=== PATIENT | female | born 1990 | race Caucasian/White ===

== ENCOUNTER 2017-05-08 23:45 | Emergency (ER) | payer OTHER ==
[2017-05-08 23:58] VITALS: BP 107/65; PULSE 75; RESP 18; TEMP 97
[2017-05-09] MEDS ORDERED: DIPH,PERTUS(ACELL)TETVAC-LF 0.5 ML VIAL IM ONE (00:02)
[2017-05-09] MEDS ORDERED: CEPHALEXIN 500 MG CAP PO STA (00:02)
[2017-05-09] MEDS ORDERED: BUPIVACAINE (PF) 0.5% 30 ML VIAL SQ STA (00:03)
--- NOTE | 2017-05-09 00:19 | ED ---
Wound/Laceration HPI - General Chief Complaint: Wound/Laceration Stated Complaint: Leg injury Time Seen by Provider: 05/08/17 23:58 Source: patient, family, RN/MD, RN notes reviewed Mode of arrival: ambulatory Limitations: no limitations - History of Present Illness Initial Comments: This is a pleasant 26-year-old female presents emergency department after sustaining a large splinter to the anterior aspect of her left lower leg. Patient was caring and air conditioner when she struck her leg on her bed sustaining a splinter from the wooden bed frame. Injury occurred about an hour prior to arrival. Tetanus status is unknown. Patient has no history of diabetes or immunosuppression. Patient is able to ambulate without difficulty. Patient denies any numbness or tingling. No distal or proximal symptoms. - Related Data Previous Rx's Medication Instructions Recorded Cephalexin [Keflex] 500 mg PO Q6HR #40 cap 05/09/17 Allergies Allergy/AdvReac Type Severity Reaction Status Date / Time latex Allergy Rash/Hives Verified 05/08/17 23:57 Review of Systems ROS Statement: Those systems with pertinent positive or pertinent negative responses have been documented in the HPI. ROS Other: All systems not noted in ROS Statement are negative. Past Medical History Past Medical History: No Reported History History of Any Multi-Drug Resistant Organisms: None Reported Past Surgical History: No Surgical Hx Reported Past Psychological History: No Psychological Hx Reported Smoking Status: Never smoker Past Alcohol Use History: None Reported Past Drug Use History: None Reported General Exam - General Exam Comments Initial Comments: Well-developed, well-nourished 26-year-old female in mild distress Limitations: no limitations General appearance: alert, in no apparent distress Head exam: Present: atraumatic, normocephalic, normal inspection Eye exam: Present: normal appearance, EOMI Neck exam: Present: normal inspection Respiratory exam: Present: normal lung sounds bilaterally. Absent: respiratory distress, wheezes, rales, rhonchi, stridor Cardiovascular Exam: Present: regular rate, normal rhythm, normal heart sounds. Absent: systolic murmur, diastolic murmur, rubs, gallop, clicks Extremities exam: Present: full ROM, normal capillary refill, other (Motor strength is normal). Absent: normal inspection, pedal edema, joint swelling, calf tenderness Neurological exam: Present: alert, oriented X3, CN II-XII intact. Absent: motor sensory deficit, reflexes normal Psychiatric exam: Present: normal affect, normal mood Skin exam: Present: other (Patient has a large soft tissue foreign body which is relatively superficial to the anterior aspect of the left lower leg. This is a large wooden splinter. The slit there is embedded in the subcutaneous tissue, probably about 4 cm. There is no evidence of vascular compromise. Capillary refill less than 2 seconds. Pedal pulses are normal.). Absent: intact Course Vital Signs 05/08/17 23:55 Temperature 97 F L Pulse Rate 75 Respiratory 18 Rate Blood Pressure 107/65 O2 Sat by Pulse 97 Oximetry Procedures - Procedures Initial comment: Area is prepped and draped in sterile fashion. 1% lidocaine with EPINEPHRINE was used to provide local anesthesia. A 27-gauge needle was used. 3 mL of anesthetic was used. The large splinter was removed with traction along the line of entry. The entire splinter was removed. There was no evidence of remaining foreign body. Wound was irrigated copiously with normal saline. Sterile dressing applied. Patient tolerated well. Medical Decision Making - Medical Decision Making I did warn the patient and family of the possibility of retained foreign body, even the likelihood of retained wooden particles. We discussed signs and symptoms of infection. We discussed wound care. We discussed follow-up for wound check. Return parameters were discussed. Case was discussed and the patient was seen by the ER attending physician, Dr. Cali. Disposition Clinical Impression: Soft tissues foreign body, Splinter of lower extremity Disposition: HOME SELF-CARE Condition: Good Instructions: Soft Tissue Foreign Body (ED), Acute Wound Care (ED) Additional Instructions: Return to the ER at once if the symptoms worsen or problems or difficulties arise. Follow-up for wound check in 2 days as directed. Warm compresses for 10 -15 minutes at a time with warm soap and water 6 times daily as directed. Take the antibiotic as directed. Use [id number] Motrin and Tylenol for pain control. Referrals: Marleen Stein DO [Primary Care Provider] - 1-2 days Time of Disposition: 00:20
[2017-05-09] MEDS ORDERED: LIDOCAINE 1% INJ 10MG/ML (20 ML MDV) SQ ONE (00:25)
== END 2017-05-09 00:38 | disposition home or self-care (01) ==
LOC: EC 23:45
DX: S81.842A Puncture wound with foreign body, left lower leg, initial encounter (principal); Z23 Encounter for immunization; Z91.040 Latex allergy status; W20.8XXA Other cause of strike by thrown, projected or falling object, initial encounter; Y93.89 Activity, other specified
CPT/HCPCS: 90715; 99283; 10120; 90471; J2001

== ENCOUNTER 2018-12-09 10:24 | Emergency (ER) | payer OTHER ==
[2018-12-09 10:29] VITALS: BP 131/83; PULSE 84; RESP 18; TEMP 98.1
--- NOTE | 2018-12-09 10:36 | ED ---
ENT HPI - General Chief complaint: ENT Stated complaint: bleeding rt ear Time Seen by Provider: 12/09/18 10:34 Source: patient, RN notes reviewed Mode of arrival: ambulatory Limitations: no limitations - History of Present Illness Initial comments: 28-year-old female presents emergency Department chief complaint of bleeding from her right ear. Patient states that she was in the shower when this started. She has had some nasal congestion recently but denies any ear pain prior or currently. Patient states that she did use Q-tips just before she was in the shower and may have injured it. Patient states that it her ear feels full but has nearly normal hearing. - Related Data Previous Rx's Medication Instructions Recorded Cephalexin [Keflex] 500 mg PO Q6HR #40 cap 05/09/17 Amoxicillin 875 mg PO Q12HR #20 tablet 12/09/18 Allergies Allergy/AdvReac Type Severity Reaction Status Date / Time latex Allergy Rash/Hives Verified 12/09/18 10:29 Review of Systems ROS Statement: Those systems with pertinent positive or pertinent negative responses have been documented in the HPI. ROS Other: All systems not noted in ROS Statement are negative. Past Medical History Past Medical History: No Reported History History of Any Multi-Drug Resistant Organisms: None Reported Past Surgical History: No Surgical Hx Reported Past Psychological History: No Psychological Hx Reported Smoking Status: Never smoker Past Alcohol Use History: None Reported Past Drug Use History: None Reported General Exam Limitations: no limitations General appearance: alert, in no apparent distress Head exam: Present: atraumatic, normocephalic, normal inspection Eye exam: Present: normal appearance, PERRL, EOMI. Absent: scleral icterus, conjunctival injection, periorbital swelling ENT exam: Present: normal oropharynx, mucous membranes moist. Absent: TM's normal bilaterally, normal external ear exam (Dry blood noted in the right ear canal, possible small perforation noted) Neck exam: Present: normal inspection, full ROM. Absent: tenderness, meningismus, lymphadenopathy Respiratory exam: Present: normal lung sounds bilaterally. Absent: respiratory distress, wheezes, rales, rhonchi, stridor Cardiovascular Exam: Present: regular rate, normal rhythm, normal heart sounds. Absent: systolic murmur, diastolic murmur, rubs, gallop, clicks Course Vital Signs 12/09/18 10:27 Temperature 98.1 F Pulse Rate 84 Respiratory 18 Rate Blood Pressure 131/83 O2 Sat by Pulse 98 Oximetry Medical Decision Making - Medical Decision Making 28-year-old female presented from for bleeding from right ear. Patient most likely has traumatic injury of her eardrum. Patient was placed on antibiotics. Patient will follow-up with ENT. Return parameters were discussed. Disposition Clinical Impression: Bleeding from right ear, Traumatic perforation of tympanic membrane Disposition: HOME SELF-CARE Condition: Stable Instructions: Ruptured Eardrum (ED) Additional Instructions: Please return to the Emergency Department if symptoms worsen or any other concerns. Prescriptions: Amoxicillin 875 mg PO Q12HR #20 tablet Is patient prescribed a controlled substance at d/c from ED?: No Referrals: Marleen Stein DO [Primary Care Provider] - 1-2 days Hussein Maldonado DO [Doctor of Osteopathic Medicine] - 1-2 days Time of Disposition: 10:50
== END 2018-12-09 11:24 | disposition home or self-care (01) ==
LOC: EC 10:24
DX: S09.21XA Traumatic rupture of right ear drum, initial encounter (principal); H92.21 Otorrhagia, right ear; Z91.040 Latex allergy status; Y93.E1 Activity, personal bathing and showering
CPT/HCPCS: 99282

== ENCOUNTER 2019-06-24 13:46 | Emergency (ER) | payer OTHER ==
[2019-06-24 13:51] VITALS: RESP 18
[2019-06-24 15:18] LABS: Appearance,Urine Cloudy (Clear); Bacteria,Urine Occasional /hpf; Bilirubin,Urine Negative (Negative); Blood,Urine Negative (Negative); Color,Urine Yellow; Glucose,Urine (UA) Negative (Negative); Ketones,Urine Trace (Negative); Leukocyte Esterase,Urine Small (Negative); Mucus,Urine Rare /hpf; Nitrite,Urine Negative (Negative); PH, Urine 7.5 (5.0-8.0); Protein,Urine Trace (Negative); Specific Gravity,Urine 1.025 (1.001-1.035); Squamous Epithelial Cell,Urine 9 /hpf (0-4); Urobilinogen,Urine <2.0 mg/dL (<2.0)
--- NOTE | 2019-06-24 15:53 | ED ---
General Adult HPI - General Chief complaint: Vaginal Bleeding Stated complaint: 11 wks /bleeding/abd pain Time Seen by Provider: 06/24/19 14:27 Source: patient, RN notes reviewed Mode of arrival: ambulatory Limitations: no limitations - History of Present Illness Initial comments: This is a 29-year-old female presents emergency Department chief complaint abdominal cramping and vaginal spotting. Patient states that she is A0 currently 11 weeks with a prior normal ultrasound. Patient states pain has been increased over the last day or so but they was worse with spotting. Patient does admit that she does not keep up on her fluids. Patient denies any dysuria or hematuria. Denies any flank pain, back pain, chest pain or shortness breath. Patient states her [employer]PERATIONS [employer]ORDIN[employer] is based out [place]. She states symptoms do decreased with rest. - Related Data Home Medications Medication Instructions Recorded Confirmed [id number] Acid 1 cap PO DAILY 06/24/19 06/24/19 [-U Capsule (formulary)] Allergies Allergy/AdvReac Type Severity Reaction Status Date / Time latex Allergy Rash/Hives Verified 06/24/19 15:20 Review of Systems ROS Statement: Those systems with pertinent positive or pertinent negative responses have been documented in the HPI. ROS Other: All systems not noted in ROS Statement are negative. Past Medical History Past Medical History: No Reported History History of Any Multi-Drug Resistant Organisms: None Reported Past Surgical History: No Surgical Hx Reported Past Psychological History: No Psychological Hx Reported Smoking Status: Never smoker Past Alcohol Use History: None Reported Past Drug Use History: None Reported General Exam Limitations: no limitations General appearance: alert, in no apparent distress Head exam: Present: atraumatic, normocephalic, normal inspection Eye exam: Present: normal appearance, PERRL, EOMI. Absent: scleral icterus, conjunctival injection, periorbital swelling ENT exam: Present: normal exam, normal oropharynx, mucous membranes moist, TM's normal bilaterally Neck exam: Present: normal inspection, full ROM. Absent: tenderness, meningismus, lymphadenopathy Respiratory exam: Present: normal lung sounds bilaterally. Absent: respiratory distress, wheezes, rales, rhonchi, stridor Cardiovascular Exam: Present: regular rate, normal rhythm, normal heart sounds. Absent: systolic murmur, diastolic murmur, rubs, gallop, clicks GI/Abdominal exam: Present: soft, tenderness (Mild lower abdominal tenderness), normal bowel sounds. Absent: distended, guarding, rebound, rigid Back exam: Absent: CVA tenderness (R), CVA tenderness (L) Skin exam: Present: warm, dry, intact, normal color. Absent: rash Course Vital Signs 06/24/19 13:48 Temperature 98.0 F Pulse Rate 94 Respiratory 18 Rate Blood Pressure 105/62 O2 Sat by Pulse 98 Oximetry Medical Decision Making - Medical Decision Making 29-year-old female presented for abdominal comfort and . Patient also was unremarkable urinalysis unremarkable. Patient is B+ blood type and does not require RhoGAM at this time. Patient we discharged return parameters were discussed. - Lab Data Lab Results 06/24/19 06/24/19 Range/Units 15:00 15:04 Urine Color Yellow Urine Appearance Cloudy H (Clear) Urine pH 7.5 (5.0-8.0) Ur Specific [place] 1.025 (1.001-1.035) Urine Protein Trace H (Negative) Urine Glucose (UA) Negative (Negative) Urine Ketones Trace H (Negative) Urine Blood Negative (Negative) Urine Nitrite Negative (Negative) Urine Bilirubin Negative (Negative) Urine Urobilinogen <2.0 (<2.0) mg/dL Ur Leukocyte Esterase Small H (Negative) Urine WBC 6 H (0-5) /hpf Ur Squamous Epith Cells 9 H (0-4) /hpf Urine Bacteria Occasional H (None) /hpf Urine Mucus Rare H (None) /hpf Blood Type B Positive Blood Type Recheck No Disposition Clinical Impression: Abdominal pain in Disposition: HOME SELF-CARE Condition: Stable Instructions (If sedation given, give patient instructions): Abdominal Pain in (ED) Additional Instructions: Please return to the Emergency Department if symptoms worsen or any other concerns. Is patient prescribed a controlled substance at d/c from ED?: No Referrals: Marleen Stein DO [Primary Care Provider] - 1-2 days Time of Disposition: 16:08
--- NOTE | 2019-06-24 16:01 | US ---
EXAMINATION TYPE: Transabdominal DATE OF EXAM: 06/24/2019 3:43 PM COMPARISON: NONE CLINICAL HISTORY: Pain. Spotting and pelvic cramping x couple days EXAM PERFORMED: Transabdominal (TA) EXAM MEASUREMENTS: GESTATIONAL AGE / DATING Physician Established: (10 weeks/6 days) EDC: 01/14/2020 Dates by LMP: Unknown Dates by First Scan: This is 1st scan Dates by Current Scan for: (11 weeks/3 days) EDC: 01/10/2020 MATERNAL ANATOMY Uterus: 10.6 x 8.7 x 8.6cm, anteverted Right Ovary: 3.6 x 1.8 x 1.4cm Left Ovary: 2.5 x 1.3 x 1.7cm Post CDS / Adnexa: wnl Presence of free fluid: no Presence of corpus luteal cyst: right ovary: 1.9 x 1.3 x 1.4cm Presence of subchorionic bleed: no GESTATION / SURVEY CRL: 4.6cm (11 weeks/3 days) Yolk Sac (normal less than 6mm): not seen Heart Rate: 158 bpm Rhythm: Normal IUP: Viable IUP Nuchal Translucency 10-14wks (normal less than 3mm): 1.5mm Viable single IUP measuring 11 weeks 3 days with a heart rate of 158bpm and an estimated delivery benjamin e of 01/10/2020. IMPRESSION: Single viable intrauterine corresponding to ultrasound age of 11 weeks 3 days with estimate d date of delivery 01/10/2020
[2019-06-24 16:21] VITALS: BP 110/62; PULSE 77; TEMP 98.2
== END 2019-06-24 16:20 | disposition home or self-care (01) ==
LOC: EC 13:46
DX: O26.891 Other specified pregnancy related conditions, first trimester (principal); Z3A.11 11 weeks gestation of pregnancy; Z91.040 Latex allergy status
CPT/HCPCS: 76801; 81001; 86900; 86901; 99284

== ENCOUNTER 2019-08-13 13:06 | Emergency (ER) | payer OTHER ==
[2019-08-13 14:11] VITALS: TEMP 97.8
[2019-08-13 14:20] LABS: Basophils # (A) 0.1 k/uL (0-0.2); Basophils % (A) 1 %; Eosinophils # (A) 0.3 k/uL (0-0.7); Eosinophils % (A) 4 %; HCT 32.9 % (34.0-46.0); HGB 11.3 gm/dL (11.4-16.0); Lymphocytes # (A) 1.6 k/uL (1.0-4.8); Lymphocytes % (A) 20 %; MCH 30.5 pg (25.0-35.0); MCHC 34.3 g/dL (31.0-37.0); MCV 89.2 fL (80.0-100.0); Mean Platelet Volume 7.2; Monocytes # (A) 0.5 k/uL (0-1.0); Monocytes % (A) 6 %; Neutrophils # (A) 5.3 k/uL (1.3-7.7); Neutrophils % (A) 68 %; Platelet Count 167 k/uL (150-450); RBC 3.69 m/uL (3.80-5.40); RDW 13.9 % (11.5-15.5); WBC 7.8 k/uL (3.8-10.6)
[2019-08-13 14:27] LABS: ALT 10 U/L (9-52); AST 19 U/L (14-36); African American GFR (CKD) >90 (>60 ml/min/1.73 sqM); Albumin 3.6 g/dL (3.5-5.0); Alkaline Phosphatase 58 U/L (38-126); Anion Gap 10 mmol/L; Blood Urea Nitrogen 6 mg/dL (7-17); Calcium 8.7 mg/dL (8.4-10.2); Carbon Dioxide 21 mmol/L (22-30); Chloride 107 mmol/L (98-107); Glucose 108 mg/dL (74-99); Potassium 3.4 mmol/L (3.5-5.1); Sodium 138 mmol/L (137-145); Total Bilirubin 0.3 mg/dL (0.2-1.3); Total Protein 6.6 g/dL (6.3-8.2)
--- NOTE | 2019-08-13 14:40 | ED ---
Abdominal Pain HPI - General Chief Complaint: Abdominal Pain Stated Complaint: Stmac pain/17 wks Time Seen by Provider: 08/13/19 14:29 Source: patient Mode of arrival: ambulatory Limitations: no limitations - History of Present Illness Initial Comments: 29-year-old female presenting for vaginal discharge and . Patient states she has had diffuse crampy abdominal pain on and off for the past month. Patient denies radiation of pain denies severeir sharp pain. Denies vaginal odors or heavy discharge. States she has thin white discharge. Denies any current vaginal bleeding. Patient admit to vomiting but states that this is an ongoing symptom throughout her . Denies increase. Patient denies chest pain or shortness of breath, denies dysuria urgency frequency hematuria, denies fever, diarrhea or recent travel. Denies leg swelling. Remaining review of systems negative. Upon arrival patient appears well no signs acute distress. Denies concern for STI. - Related Data Home Medications Medication Instructions Recorded Confirmed No Known Home Medications 08/13/19 08/13/19 Allergies Allergy/AdvReac Type Severity Reaction Status Date / Time latex Allergy Rash/Hives Verified 08/13/19 14:41 Review of Systems ROS Statement: Those systems with pertinent positive or pertinent negative responses have been documented in the HPI. ROS Other: All systems not noted in ROS Statement are negative. Past Medical History Past Medical History: No Reported History History of Any Multi-Drug Resistant Organisms: None Reported Past Surgical History: No Surgical Hx Reported Past Psychological History: No Psychological Hx Reported Smoking Status: Never smoker Past Alcohol Use History: None Reported Past Drug Use History: None Reported General Exam - General Exam Comments Initial Comments: General: The patient is awake and alert, in no distress, and does not appear acutely ill. Eye: Pupils are equal, round and reactive to light, extra-ocular movements are intact. No nystagmus. There is normal conjunctiva bilaterally. No signs of icterus. Ears, nose, mouth and throat: There are moist mucous membranes and no oral lesions. Neck: The neck is supple, there is no tenderness or JVD. Cardiovascular: There is a regular rate and rhythm. No murmur, rub or gallop is appreciated. Respiratory: Lungs are clear to auscultation, respirations are non-labored, breath sounds are equal. No wheezes, stridor, rales, or rhonchi. Gastrointestinal: Soft, non-distended, non-tender abdomen without masses or organomegaly noted. There is no rebound or guarding present. No CVA tenderness. Bowel sounds are unremarkable. Pelvic exam no blood in vault. Scant amount of light then discharge. No odor. No adnexal or cervical motion tenderness Musculoskeletal: Normal ROM, no tenderness. Strength 5/5. Sensation intact. Pulses equal bilaterally 2+. Neurological: A&O x 3. CN II-XII intact, There are no obvious motor or sensory deficits. Coordination appears grossly intact. Speech is normal. Skin: Skin is warm and dry and no rashes or lesions are noted. Psychiatric: Cooperative, appropriate mood & affect, normal judgment. Limitations: no limitations Course Vital Signs 08/13/19 08/13/19 13:23 16:52 Temperature 97.8 F Pulse Rate 106 H 88 Respiratory 18 16 Rate Blood Pressure 118/66 120/68 O2 Sat by Pulse 96 98 Oximetry Medical Decision Making - Medical Decision Making 29-year-old female presenting today for chief complaint of crampy abdominal pain on and off for the past month. Patient states she thought it might be gas but wanted make sure it was not her baby, given has been ongoing for the past month and she has not had a second ultrasound. Ultrasound revealed a viable non- complicated interuterine . No acute findings. No vaginal bleeding examination. No adnexal cervical motion tenderness very small amount of discharge cultures pending STI testing pending. Patient states she has no con cern. No evidence of urinary tract infection. Patient appears well nontoxic. No current abdominal pain at this time do feel patient is stable for discharge with outpatient [facility] follow-up. I discussed the case with attending provider Dr. Toledo who is agreeable with this plan and discharge at this time. - Lab Data Result diagrams: 08/13/19 13:50 08/13/19 13:50 Lab Results 08/13/19 08/13/19 08/13/19 Range/Units 13:50 13:50 13:50 WBC 7.8 (3.8-10.6) k/uL RBC 3.69 L (3.80-5.40) m/uL Hgb 11.3 L (11.4-16.0) gm/dL Hct 32.9 L (34.0-46.0) % MCV 89.2 (80.0-100.0) fL MCH 30.5 (25.0-35.0) pg MCHC 34.3 (31.0-37.0) g/dL RDW 13.9 (11.5-15.5) % Plt Count 167 (150-450) k/uL Neutrophils % 68 % Lymphocytes % 20 % Monocytes % 6 % Eosinophils % 4 % Basophils % 1 % Neutrophils # 5.3 (1.3-7.7) k/uL Lymphocytes # 1.6 (1.0-4.8) k/uL Monocytes # 0.5 (0-1.0) k/uL Eosinophils # 0.3 (0-0.7) k/uL Basophils # 0.1 (0-0.2) k/uL Sodium 138 (137-145) mmol/L Potassium 3.4 L (3.5-5.1) mmol/L Chloride 107 (98-107) mmol/L Carbon Dioxide 21 L (22-30) mmol/L Anion Gap 10 mmol/L BUN 6 L (7-17) mg/dL Creatinine 0.48 L (0.52-1.04) mg/dL Est GFR (CKD-EPI)AfAm >90 (>60 ml/min/1.73 sqM) Est GFR (CKD-EPI)NonAf >90 (>60 ml/min/1.73 sqM) Glucose 108 H (74-99) mg/dL Calcium 8.7 (8.4-10.2) mg/dL Total Bilirubin 0.3 (0.2-1.3) mg/dL AST 19 (14-36) U/L ALT 10 (9-52) U/L Alkaline Phosphatase 58 (38-126) U/L Total Protein 6.6 (6.3-8.2) g/dL Albumin 3.6 (3.5-5.0) g/dL HCG, Quant 26808.3 mIU/mL Urine Color Yellow Urine Appearance Cloudy H (Clear) Urine pH 6.5 (5.0-8.0) Ur Specific [place] 1.016 (1.001-1.035) Urine Protein Trace H (Negative) Urine Glucose (UA) Negative (Negative) Urine Ketones 2+ H (Negative) Urine Blood Negative (Negative) Urine Nitrite Negative (Negative) Urine Bilirubin Negative (Negative) Urine Urobilinogen <2.0 (<2.0) mg/dL Ur Leukocyte Esterase Small H (Negative) Urine RBC 1 (0-5) /hpf Urine WBC 1 (0-5) /hpf Ur Squamous Epith Cells 14 H (0-4) /hpf Amorphous Sediment Rare H (None) /hpf Urine Bacteria Rare H (None) /hpf Urine Mucus Few H (None) /hpf Disposition Clinical Impression: Abdominal pain during , Vaginal discharge Disposition: HOME SELF-CARE Condition: Good Instructions (If sedation given, give patient instructions): Abdominal Pain in (ED) Additional Instructions: Please use medication as discussed. Please follow-up with OBGYN in next week. Please return to emergency room if the symptoms increase or worsen or for any other concerns. Is patient prescribed a controlled substance at d/c from ED?: No Referrals: Marleen Stein DO [Primary Care Provider] - 1-2 days Time of Disposition: 16:43
[2019-08-13 14:41] LABS: Amorphous Sediment,Urine Rare /hpf; Appearance,Urine Cloudy (Clear); Bacteria,Urine Rare /hpf; Bilirubin,Urine Negative (Negative); Blood,Urine Negative (Negative); Color,Urine Yellow; Glucose,Urine (UA) Negative (Negative); Ketones,Urine 2+ (Negative); Leukocyte Esterase,Urine Small (Negative); Mucus,Urine Few /hpf; Nitrite,Urine Negative (Negative); PH, Urine 6.5 (5.0-8.0); Protein,Urine Trace (Negative); RBC,Urine 1 /hpf (0-5); Specific Gravity,Urine 1.016 (1.001-1.035); Squamous Epithelial Cell,Urine 14 /hpf (0-4); Urobilinogen,Urine <2.0 mg/dL (<2.0); WBC,Urine 1 /hpf (0-5)
[2019-08-13 15:35] LABS: HCG,Quantitative Serum 15917.3 mIU/mL
--- NOTE | 2019-08-13 15:41 | US ---
EXAMINATION TYPE: US OB >= 14 wk fetus DATE OF EXAM: 08/13/2019 COMPARISON: First trimester ultrasound June 24, 2019 CLINICAL HISTORY: abdominal paincramping TECHNIQUE: Transabdominal (TA) GESTATIONAL AGE / DATING Physician Established: (18 weeks/0 days) EDC: 01/14/2020 Dates by LMP: LMP unknown Dates by First Scan: (18 weeks/4 days) EDC: 01/10/2020 Dates by Current Scan: (19 weeks/0 days) EDC: 01/07/2020 SURVEY IUP: Single PLACENTA: Posterior PREVIA: No Previa BERE: 15.2 cm Normal CERVICAL LENGTH (transabdominal: norm > 3.0cm): 3.9 cm BIOMETRY PRESENTATION: Breech BPD: 4.3 cm 19 weeks / 0 days HC: 15.8 cm 18 weeks / 5 days AC: 13.4 cm 19 weeks / 0 days FL: 2.9 cm 19 weeks / 1 days ESTIMATED WEIGHT IN GRAMS: 264 grams ESTIMATED WEIGHT IN LBS/OZ: 0 lbs. 9 oz. WEIGHT PERCENTAGE BASED ON ESTABLISHED DATES: 67% HC/AC: 1.2 Normal FL/AC: 22 Normal HEART RATE: 138 bpm RHYTHM: Normal Growth according to dates. Single live intrauterine gestation is redemonstrated. No cervical thinning. A breech presentation is currently seen. No ultrasound evidence for placenta previa. Calculated amniotic fluid index is within normal limits. biometry measurements are congruent and thought within normal limits with inter [place] satisfactory progression noted. IMPRESSION: As above.
[2019-08-13] MEDS ORDERED: SODIUM CHLORIDE 0.9% 500 ML 500 ML IV STA (16:11)
[2019-08-13 16:58] VITALS: BP 120/68; PULSE 88; RESP 16
== END 2019-08-13 16:55 | disposition home or self-care (01) ==
LOC: EC 13:06
DX: O26.892 Other specified pregnancy related conditions, second trimester (principal); R10.84 Generalized abdominal pain; O99.89 Other specified diseases and conditions complicating pregnancy, childbirth and the puerperium; N89.8 Other specified noninflammatory disorders of vagina; Z3A.17 17 weeks gestation of pregnancy; Z91.040 Latex allergy status
CPT/HCPCS: 36415; 76805; 80053; 81001; 84702; 85025; 99284